=== PATIENT | female | born 1960 | race Caucasian/White ===

== ENCOUNTER 2018-07-24 16:38 | Emergency (ER) | payer BC ==
[2018-07-24 16:51] VITALS: BP 52/37
[2018-07-24] MEDS ORDERED: Metoclopramide 10 MG/2 ML SDV IVPUSH ONE (17:03)
[2018-07-24] MEDS ORDERED: Sodium Chloride 0.9% 1,000 ML IV STA (17:03)
[2018-07-24] MEDS ORDERED: Dextrose 5%-0.9% NaCl 1,000 ML IV STA (17:06)
[2018-07-24] MEDS ORDERED: Iopamidol 755 Mg/ML 200 ML Bottle IV ONE (17:28)
[2018-07-24] MEDS ORDERED: Sodium Chloride 0.9% 100 ML IV SCH (17:30)
[2018-07-24 17:32] LABS: ACETAMINOPHEN 0 ug/mL (10-30)
[2018-07-24] MEDS ORDERED: Norepinephrine 4 MG/4 ML SDV ONE (18:19)
[2018-07-24] MEDS ORDERED: Norepinephrine 4 MG in Dextrose 5% in Water 246 ML IV SCH ×2 (18:30)
[2018-07-24] MEDS ORDERED: EPINEPHrine 1 MG/ML SDV ONE (18:49)
[2018-07-24] MEDS ORDERED: Lidocaine 1% PF 2 ML SDV ONE (19:00)
[2018-07-24] MEDS ORDERED: Succinylcholine 200 MG/10 ML MDV ONE (19:00)
[2018-07-24] MEDS ORDERED: Midazolam 1 MG/ML 5 ML SDV ONE (19:00)
[2018-07-24] MEDS ORDERED: Etomidate 2 MG/ML 20 ML SDV IVPUSH ONE (19:00)
[2018-07-24] MEDS ORDERED: EPINEPHrine 4 MG in Dextrose 5% in Water 250 ML IV SCH ×2 (19:15)
--- NOTE | 2018-07-24 19:36 | EDM.PDOC ---
ED HPI GENERAL MEDICAL PROBLEM - General Chief Complaint: Head Injury Stated Complaint: [facility] Time Seen by Provider: 07/24/18 16:46 Source of Information: Reports: Patient, EMS History Limitations: Reports: Altered Mental Status, Combative/Threatening, Intoxication, Uncooperative - History of Present Illness INITIAL COMMENTS - FREE TEXT/NARRATIVE: 57-year-old female brought to the ED per ambulance. She was found by a family member I believe a brother at the bottom of a staircase inside her home. She appeared to have fallen down 6-8 stairs onto a carpeted concrete floor. She had left the garage door open and therefore have been exposed to very cool air and when she came in she was definitely hypothermic. Her feet were at least 15 below body temperature. I'm not sure that we ever got a core body temperature reading. She was showing atrial fibrillation on the monitor which apparently is chronic for her and but the rate was down in the 30s like 33/m with associated hypotension BP 52/37.. He did not show any outward signs of head or neck trauma. She had injuries to her right index finger nail and her left fifth fingernail as if she been clawing at the floor. He did have tenderness on her right posterior thorax. She smells strongly of alcohol. She was extremely belligerent, uncooperative patient was cyanotic particularily in her periphery. She had pulled out 2 IVs en route to the hospital that the paramedics is started and we got a third one started in the ED once again and protected it well. She was dry heaving and retching a bit and therefore was given metoclopramide 10 mg IV. Due to a hypoxic state we did not feel comfortable giving her any other sedative agent. IV was started at normal saline at open. Rate would jump anywhere between 33 and 46/m but remained in atrial fibrillation which we later found out was chronic for her. Patient was taken immediately to the CT suite where CT head cervical spine, thoracic spine, lumbar spine, and CT chest abdomen and pelvis done with contrast. When she returned from the CT suite it was quite apparent that she was not responding to IV fluids. She remained hypoxic hypotensive and cyanotic. Persistent bradycardia and atrial fibrillation. An ABG had been drawn prior to going to the CT suite and pH came back at 7.15 with a PCO2 of 48.4 to PO2 of less than 70 on 5 L/m by nasal cannula. Sats were 82% decision made to intubate her. She was given lidocaine 120 mg IV with Versed 2 mg IV followed by etomidate 35 mg IV and then succinylcholine 150 mg IV. Patient was intubated with a 7.5 Nepali ET tube and anchored at 22 cm corner of her right lip. Good air entry to both lung milner. However it took vigorous and aggressive Ambu bag being 2 improve her O2 sats. It became apparent that her bradycardia and hypotension were not allowing perfusion of her tissues. Atropine was given 0.5 mg 2 with no real improvement in her heart rate. She was therefore given 1 mg of epinephrine IV push which did improve her heart rate and then her blood pressure and then hypoxia began to improve. Levophed drip was commenced at 10 mcg/m and patient was transferred to ventilator with initial time of volume of 500 and FiO2 of 100 and PEEP of 5 and rate of 16/m. Hardware within 4-5 minutes her O2 sats once again began to fall dramatically down to as low as 57. She therefore required a second injection of epinephrine 1 mg IV push which again transiently brought up her blood pressure heart rate and sats improved with Ambu bag up to 94--95%. Levo phed drip was then increased to 20 mcg/m. Epinephrine drip was being prepared. Nasogastric tube was placed to intermittent Gomco suction. Once again her O2 sat sats and blood pressure started to fall after the epinephrine bolus wore off. She required a third dose of epinephrine bolus to stabilize her until epinephrine drip could be started. It was started at 22 mcg/m for 3 mils per minute. She continued to require Ambu bag being as the ventilator could not maintain her O2 sats. We've increased increased the settings to 20/m and Tylenol volume to 550 and PEEP of 10. Set central line placed right subclavian with single stick. Triple-lumen catheter placed under sterile conditions. All ports flushed easily and are functional. Epinephrine drip was then placed on the subclavian line. CT of the brain revealed some degenerative changes in the basal ganglia bilaterally was no intracranial bleeding mass effect or skull fracture. CT of the cervical spine reveal no fractures advanced degenerative changes particularly at cervical 5-6 level with anterior osteophyte formation and diffuse degenerative disc disease. Thoracic spine similarly show degenerative changes without any compression fractures. Lumbar spine revealed advanced degenerative changes particularly lumbar 34 and 5 but [address] no fractures. CT of the chest revealed a fracture of the eighth rib posteriorly with a contusion evident in the lower lobe. CT of the abdomen revealed no solid organ injuries or bleeding and no free fluid in the pelvis. Pelvis was intact. Unfortunately my computer went down and locked me out as I was trying to place orders on this patient and therefore orders were given secondarily through nursing staff and initial lactic acid unfortunately was not obtained. I suspect the patient was severely acidotic from a combination of being hypothermic unclear how long she had been lying there. She was obviously intoxicated by alcohol with a blood alcohol 0.35 g percent and volume depleted. Unclear what caused her significant bradycardia in chronic atrial fibrillation unless she had taken an overdose of her medications. It took a long time but eventually the patient's vital signs were stabilized. She was able to tolerate the event and maintain satisfactory O2 sats sats of 95-100%. As part of her resuscitation she did received 3 A of sodium bicarbonate as well. She did have some evidence of urinary tract infection and was given Zyvox 600 mg IV as well. Onset: Unknown/Unsure (Unknown for sure when she fell down the stairs at her home. He was with family last evening and she did eat supper last night.) Onset Date: 07/24/18 Duration: Hour(s): Location: Reports: Chest, Back, Other (Injury to the left fifth fingernail with bleeding from under the nail bed and right index finger with similar type injury.) Severity: Severe (Her hypoxia making her cyanotic everywhere and extremely cold to touch and obviously hypothermic. I don't think core temperature was ever collected.) Improves with: Reports: None Worsens with: Reports: None Context: Reports: Trauma (Found at the bottom of 68 stairs leading down internal os. However the garage door was open in the hospital was open and she was exposed to cool outside air which was 38 in [place] today. Appears that this is occurred for a prolonged period of time). Denies: Activity, Exercise, Lifting, Sick Contact Associated Symptoms: Reports: Cough, Shortness of Breath (She is a COPD patient and apparently is supposed to be started oxygen on Wednesday this next week). Denies: Confusion, Chest Pain, Diaphoresis Treatments MARKETING GRAPHICS SPECIALIST: Reports: Other (see below) (Unknown.) - Related Data Allergies Allergy/AdvReac Type Severity Reaction Status Date / Time No Known Allergies Allergy Verified 05/06/16 19:26 Home Meds: Home Meds Atenolol [Tenormin] 50 mg PO DAILY 05/06/16 [History] Diltiazem HCl [Diltiazem ER] 360 mg PO DAILY 05/06/16 [History] Multivitamin [Multivitamins] 1 tab PO DAILY 05/06/16 [History] Pravastatin [Pravachol] 20 mg PO BEDTIME 05/06/16 [History] Rivaroxaban [Xarelto] 20 mg PO DAILY 05/06/16 [History] Ubidecarenone [Coenzyme Q-10] 100 mg PO DAILY 05/06/16 [History] metFORMIN [Glucophage XR] 500 mg PO DAILY 05/06/16 [History] Fenofibric Acid (Choline) [Fenofibric Acid] 45 mg PO DAILY 07/24/18 [History] Fluticasone Furoate [Arnuity Ellipta] 1 inh INH DAILY 07/24/18 [History] Furosemide [Lasix] 20 mg PO DAILY 07/24/18 [History] Potassium Chloride 20 meq PO DAILY 07/24/18 [History] Umeclidinium Brm/Vilanterol Tr [Anoro Ellipta 62.5-25 MCG] 1 inh INH DAILY 07/24 [History] hydroCHLOROthiazide [Hydrochlorothiazide] 25 mg PO DAILY 07/24/18 [History] Past Medical History Cardiovascular History: Reports: Afib (And is on Xarelto 20mg od.), 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 Scheduled to start oxygen therapy early next week) Musculoskeletal History: Reports: Back Pain, Chronic, Other (See Below) ( Osteoarthritis knees hips) Endocrine/Metabolic History: Reports: Diabetes, Type II (Controlled with metformin.) - Past Surgical History Female Surgical History: Reports: Hysterectomy Social & Family History - Tobacco Use Smoking Status *Q: Current Every Day Smoker Years of Tobacco use: 30 Packs/Tins Daily: 1 - Caffeine Use Caffeine Use: Reports: Coffee - Recreational Drug Use Recreational Drug Use: No - Living Situation & Occupation Living situation: Reports: Occupation: Employed ED ROS GENERAL - Review of Systems Review Of Systems: Unable To Obtain (Unable to obtain with any degree of certainty as the patient has markedly impaired by alcohol yelling cursing and screaming) ED EXAM, HEAD INJURY - Physical Exam Exam: See Below Exam Limited By: Intoxication (Acutely intoxicated by alcohol.) General Appearance: Lethargic, Moderate Distress, Other (Uncooperative yelling cursing and screaming.) Head: Atraumatic, Normocephalic, Other (Were no outward signs of head or facial trauma.) Nexus Criteria: No: Posterior, Midline Cervical Tenderness (Paramedics tried to place a collar on her but she ripped it off.), Evidence of Intoxication, Altered Level of Consciousness, Focal Neurological Deficit, Painful Distraction Injuries Eyes: Bilateral Eye: Conjunctival Injection (Mild bilaterally.) Ears: Normal TMs (No blood behind the tympanic membranes) Nose: Dried Blood (Dried blood in both anterior nares. No septal hematoma. ) Throat/Mouth: Normal Voice, Pharyngeal Erythema Neck: Other (She was thrashing around the bed quite well moving her neck without apparent fracture.) Respiratory: Respiratory Distress (Tachypnea get 22-24/m. O2 sats were in the 50s. However they were inaccurate due to severe hypothermia.), Decreased Breath Sounds (Decreased air entry to the posterior aspect of both lung milner by over 25%.), Rhonchi (Rhonchi right lung base.), Wheezing (Occasional expiratory wheezes bilaterally) Cardiovascular: No Edema, No Murmur, No Rub, Bradycardia (Monitor shows atrial fibrillation at 33/m), Irregularly Irregular GI/Abdominal Exam: Non-Tender, No Organomegaly, No Abnormal Bruit, No Mass, Pelvis Stable, Abnormal Bowel Sounds (Bowel sounds were quiet sent.), Other ( Her abdomen is even very cool to touch and is cyanotic.) Back Exam: Other (She has a hematoma right posterior thorax and some tenderness over the posterior lateral lower ribs on the right side. Sternum intact clavicles intact humeri intact the only injuries to the hands were to the left fifth fingernail in the right index fingernail.) Extremities: Other (She had full range of motion of both lower extremities with no evidence of hip fracture or knee or ankle injuries. Pelvis was intact. Lower extremities are not mottled but are definitely cyanotic.). No: Normal Inspection Neurologic: No Motor/Sensory Deficits, Disoriented x 3 (Disoriented to time she knew she was in the hospital. She did not want to be here.) Skin: Other (Patient is extremely cold to her cold to touch and diffusely cyanotic.) - Roseann Coma Score Best Eye Response (Roseann): (4) Open Spontaneously Best Verbal Response ([place]): (4) Confused Conversation Best Motor Response (Roseann): (6) Obeys Commands Roseann Total: 14 ED LACERATION/WOUND & KRISTIE PROC - Endotracheal Intubation Time of Intubation: 17:43 ET Intubation Indication: Respiratory Failure Preparation: Suction, Balloon Tested, BVM Set Up, Difficult Airway Equip Airway Assessment: Obese, Large Tongue Pre-Oxygenation: Assisted with BVM, 100% FiO2 Anesthesia Meds: Etomidate (35 mg), Lidocaine (150 mg), Midazolam (2 mg), Succinylcholine (150 mg) Placement: Orotracheal, Uncomplicated Placement Cords Visualized: Yes, Grade 1 ETT Size In mm: 7.5 Number of Attempts: 1 Confirmed By: CO2 Indicator, Bilateral Breath Sounds, Chest Xray Tube Secured By: By RT ED CENTRAL LINE INSERTION - Central Line Insertion Central Line Indication: hemodynamic monitoring, medication administration Site: subclavian (R) Prep: CDC/MBT Guidelines, Sterile Drapes, Betadine, Chlorhexidine Lumen: triple Gauge: 7Fr Ultrasound guided: No Guidewire and dilator removed intact: Yes Micropuncture kit used: No Complications: No Secured with suture: Yes Post placement confirmation: CXR, all ports aspirated, all ports flushed CXR post-procedure: no pneumothorax Dressing applied: by nurse, op-site dressing EKG INTERPRETATION EKG Date: 07/24/18 Time: 17:02 Rhythm: A-Fib Rate (Beats/Min): 39 [place]: Normal P-Wave: Absent QRS: Other (Intraventricular conduction delay Q waves in leads V1 and V2 suggestive of old anteroseptal myocardial infarction) ST-T: Other (T-wave inversion aVL, V1 and V2 flat T in lead 1. Diffuse repolarization abnormality.) Course - Vital Signs Last Recorded V/S: Last Vital Signs Temp 35.1 C L 07/24/18 16:46 Pulse 55 L 07/24/18 16:46 Resp 22 H 07/24/18 16:46 BP 52/37 L 07/24/18 16:46 Pulse Ox 88 L 07/24/18 16:57 - Orders/Labs/Meds Orders: Active Orders 24 hr Category Date Time Status EKG Documentation Completion [RC] STAT Care 07/24/18 17:03 Active Abdomen Pelvis w Cont [CT] Stat Exams 07/24/18 17:07 Taken Cervical Spine wo Cont [CT] Stat Exams 07/24/18 16:52 Taken Chest 1V-Tube Placement Chk NC [CR] Stat Exams 07/24/18 19:18 Taken Chest PE [Ang Chest] [CT] Stat Exams 07/24/18 17:01 Taken Head wo Cont [CT] Stat Exams 07/24/18 16:52 Taken Lumbar Spine wo Cont [CT] Stat Exams 07/24/18 16:54 Taken Thoracic Spine wo Cont [CT] Stat Exams 07/24/18 16:53 Taken CPK [CREATINE KINASE,CK] [CHEM] Stat Lab 07/24/18 20:39 Ordered EPINEPHrine [Adrenalin] 4 mg Med 07/24/18 19:15 Active Dextrose 5% in Water 250 ml IV TITRATE Linezolid [Zyvox] 300 ml Med 07/24/18 19:15 Active IV Q12H Norepinephrine [Levophed] 4 mg Med 07/24/18 18:30 Active Dextrose 5% in Water 246 ml IV TITRATE Sodium Chloride 0.9% [Normal Saline] 100 ml Med 07/24/18 17:30 Active IV ASDIRECTED Medication Orders Sodium Chloride (Normal Saline) 100 mls @ 3 mls/sec IV ASDIRECTED KB Last Admin: 07/24/18 17:43 Dose: 3 mls/sec Norepinephrine Bitartrate 4 mg (/ Dextrose/Water) 250 mls @ 7.5 mls/hr IV TITRATE KB; Protocol Last Admin: 07/24/18 19:07 Dose: 20 mcg/min, 75 mls/hr Epinephrine HCl 4 mg/ Dextrose (/Water) 254 mls @ 3 mls/hr IV TITRATE KB Linezolid (Zyvox) 300 mls @ 300 mls/hr IV Q12H [facility] Labs: Laboratory Tests 07/24/18 07/24/18 07/24/18 Range/Units 16:53 16:55 16:55 WBC 8.31 (3.98-10.04) K/mm3 RBC 5.57 H (3.98-5.22) M/mm3 Hgb 16.0 H (11.2-15.7) gm/L Hct 51.8 H (34.1-44.9) % MCV 93.0 (79.4-94.8) fl MCH 28.7 (25.6-32.2) pg MCHC 30.9 L (32.2-35.5) g/dl RDW Std Deviation 55.1 H (36.4-46.3) fL Plt Count 219 (182-369) K/mm3 MPV 10.9 (9.4-12.3) fl Neutrophils % (Manual) 64 H (40-60) % Band Neutrophils % 0 (0-10) % Lymphocytes % (Manual) 32 (20-40) % Atypical Lymphs % 0 % Monocytes % (Manual) 4 (2-10) % Eosinophils % (Manual) 0 L (0.7-5.8) % Basophils % (Manual) 0 L (0.1-1.2) Platelet Estimate Adequate RBC Morph Comment Normal PT 14.6 H (9.5-12.1) SECONDS INR 1.35 APTT 32 H (24-31) SECONDS D-Dimer, Quantitative 1.09 H (0.19-0.50) mg/L Puncture Site ABG pH (7.35-7.45) ABG pCO2 (35.0-45.0) mmHg ABG pO2 (80.0-100.0) mmHg ABG HCO3 (22.0-26.0) meq/L ABG O2 Saturation (96.0-97.0) % ABG Base Excess (-2-2.0) Chacorta Test A-a Gradient mmHg O2 Delivery Device Oxygen Flow Rate FiO2 (21.00-100.00) % Sodium (136-145) mEq/L Potassium (3.5-5.1) mEq/L Chloride (98-107) mEq/L Carbon Dioxide (21-32) mEq/L Anion Gap (5-15) BUN (7-18) mg/dL Creatinine (0.55-1.02) mg/dL Est Cr Clr Drug Dosing mL/min Estimated GFR (MDRD) (>60) mL/min BUN/Creatinine Ratio (14-18) Glucose (74-106) mg/dL POC Glucose 105 (70-105) mg/dL Lactic Acid (0.4-2.0) mmol/L Calcium (8.5-10.1) mg/dL Total Bilirubin (0.2-1.0) mg/dL AST (15-37) U/L ALT (14-59) U/L Alkaline Phosphatase (46-116) U/L CK-MB (CK-2) (0-3.6) ng/ml Troponin I (0.00-0.056) ng/mL Total Protein (6.4-8.2) g/dl Albumin (3.4-5.0) g/dl Globulin gm/dL Albumin/Globulin Ratio (1-2) Urine Color (Yellow) Urine Appearance (Clear) Urine pH (5.0-8.0) Ur Specific [place] (1.005-1.030) Urine Protein (Negative) Urine Glucose (UA) (Negative) Urine Ketones (Negative) Urine Occult Blood (Negative) Urine Nitrite (Negative) Urine Bilirubin (Negative) Urine Urobilinogen (0.2-1.0) Ur Leukocyte Esterase (Negative) Urine RBC (0-5) /hpf Urine WBC (0-5) /hpf Urine WBC Clumps (NOT SEEN) /hpf Ur Epithelial Cells (0-5) /hpf Urine Bacteria (FEW) /hpf Urine Mucus (FEW) /hpf Salicylates (2.8-20) mg/dL Urine Opiates Screen (WVAZQT=509) Ur Buprenorphine Scrn (CUTOFF=10) Ur Oxycodone Screen (VGM8NM=987) Urine Methadone Screen (RLPMHG=668) Ur Propoxyphene Screen (RMPJYX=529) Acetaminophen (10-30) ug/mL Ur Barbiturates Screen (BIKCTW=118) Ur Tricyclics Screen (AIGNOQ=777) Ur Phencyclidine Scrn (CUTOFF=25) Ur Amphetamine Screen (JLCMPA=431) U Methamphetamines Scrn (MVESBU=913) U Benzodiazepines Scrn (JRRQPI=151) U Cocaine Metab Screen (OEGEDX=459) U Marijuana (THC) Screen (CUTOFF=50) Ethyl Alcohol (0.00) gm% 07/24/18 07/24/18 07/24/18 Range/Units 16:55 16:55 17:07 WBC (3.98-10.04) K/mm3 RBC (3.98-5.22) M/mm3 Hgb (11.2-15.7) gm/L Hct (34.1-44.9) % MCV (79.4-94.8) fl MCH (25.6-32.2) pg MCHC (32.2-35.5) g/dl RDW Std Deviation (36.4-46.3) fL Plt Count (182-369) K/mm3 MPV (9.4-12.3) fl Neutrophils % (Manual) (40-60) % Band Neutrophils % (0-10) % Lymphocytes % (Manual) (20-40) % Atypical Lymphs % % Monocytes % (Manual) (2-10) % Eosinophils % (Manual) (0.7-5.8) % Basophils % (Manual) (0.1-1.2) Platelet Estimate RBC Morph Comment PT (9.5-12.1) SECONDS INR APTT (24-31) SECONDS D-Dimer, Quantitative (0.19-0.50) mg/L Puncture Site Rt radial ABG pH 7.16 L* (7.35-7.45) ABG pCO2 53.3 H (35.0-45.0) mmHg ABG pO2 40.0 L (80.0-100.0) mmHg ABG HCO3 18.4 L (22.0-26.0) meq/L ABG O2 Saturation 45.5 L (96.0-97.0) % ABG Base Excess -10.7 L (-2-2.0) Chacorta Test Positive A-a Gradient mmHg O2 Delivery Device Nasal cannula Oxygen Flow Rate 4.0 FiO2 0.00 L (21.00-100.00) % Sodium 140 (136-145) mEq/L Potassium 5.4 H D (3.5-5.1) mEq/L Chloride 104 (98-107) mEq/L Carbon Dioxide 19 L (21-32) mEq/L Anion Gap 22.4 H (5-15) BUN 31 H (7-18) mg/dL Creatinine 1.9 H (0.55-1.02) mg/dL Est Cr Clr Drug Dosing 36.95 mL/min Estimated GFR (MDRD) 27 (>60) mL/min BUN/Creatinine Ratio 16.3 (14-18) Glucose 110 H (74-106) mg/dL POC Glucose (70-105) mg/dL Lactic Acid (0.4-2.0) mmol/L Calcium 8.9 (8.5-10.1) mg/dL Total Bilirubin 0.7 (0.2-1.0) mg/dL AST 240 H (15-37) U/L ALT 193 H (14-59) U/L Alkaline Phosphatase 55 (46-116) U/L CK-MB (CK-2) 6.4 H (0-3.6) ng/ml Troponin I < 0.017 (0.00-0.056) ng/mL Total Protein 7.1 (6.4-8.2) g/dl Albumin 3.4 (3.4-5.0) g/dl Globulin 3.7 gm/dL Albumin/Globulin Ratio 0.9 L (1-2) Urine Color (Yellow) Urine Appearance (Clear) Urine pH (5.0-8.0) Ur Specific [place] (1.005-1.030) Urine Protein (Negative) Urine Glucose (UA) (Negative) Urine Ketones (Negative) Urine Occult Blood (Negative) Urine Nitrite (Negative) Urine Bilirubin (Negative) Urine Urobilinogen (0.2-1.0) Ur Leukocyte Esterase (Negative) Urine RBC (0-5) /hpf Urine WBC (0-5) /hpf Urine WBC Clumps (NOT SEEN) /hpf Ur Epithelial Cells (0-5) /hpf Urine Bacteria (FEW) /hpf Urine Mucus (FEW) /hpf Salicylates 2.9 (2.8-20) mg/dL Urine Opiates Screen (GEDJIG=911) Ur Buprenorphine Scrn (CUTOFF=10) Ur Oxycodone Screen (WHJ8JT=824) Urine Methadone Screen (RXIGCR=266) Ur Propoxyphene Screen (IASNQX=157) Acetaminophen 0 L (10-30) ug/mL Ur Barbiturates Screen (EYKVIA=775) Ur Tricyclics Screen (BEVWOK=048) Ur Phencyclidine Scrn (CUTOFF=25) Ur Amphetamine Screen (DJINTQ=277) U Methamphetamines Scrn (APUXPM=550) U Benzodiazepines Scrn (LPKRFW=910) U Cocaine Metab Screen (RKDMJJ=081) U Marijuana (THC) Screen (CUTOFF=50) Ethyl Alcohol 0.35 (0.00) gm% 07/24/18 07/24/18 07/24/18 Range/Units 18:00 18:00 18:47 WBC (3.98-10.04) K/mm3 RBC (3.98-5.22) M/mm3 Hgb (11.2-15.7) gm/L Hct (34.1-44.9) % MCV (79.4-94.8) fl MCH (25.6-32.2) pg MCHC (32.2-35.5) g/dl RDW Std Deviation (36.4-46.3) fL Plt Count (182-369) K/mm3 MPV (9.4-12.3) fl Neutrophils % (Manual) (40-60) % Band Neutrophils % (0-10) % Lymphocytes % (Manual) (20-40) % Atypical Lymphs % % Monocytes % (Manual) (2-10) % Eosinophils % (Manual) (0.7-5.8) % Basophils % (Manual) (0.1-1.2) Platelet Estimate RBC Morph Comment PT (9.5-12.1) SECONDS INR APTT (24-31) SECONDS D-Dimer, Quantitative (0.19-0.50) mg/L Puncture Site Rt radial ABG pH 7.25 L (7.35-7.45) ABG pCO2 41.4 (35.0-45.0) mmHg ABG pO2 250.0 H* (80.0-100.0) mmHg ABG HCO3 17.6 L (22.0-26.0) meq/L ABG O2 Saturation 99.7 H (96.0-97.0) % ABG Base Excess -8.9 L (-2-2.0) Chacorta Test Positive A-a Gradient 338 mmHg O2 Delivery Device Oxygen Flow Rate FiO2 0.00 L (21.00-100.00) % Sodium (136-145) mEq/L Potassium (3.5-5.1) mEq/L Chloride (98-107) mEq/L Carbon Dioxide (21-32) mEq/L Anion Gap (5-15) BUN (7-18) mg/dL Creatinine (0.55-1.02) mg/dL Est Cr Clr Drug Dosing mL/min Estimated GFR (MDRD) (>60) mL/min BUN/Creatinine Ratio (14-18) Glucose (74-106) mg/dL POC Glucose (70-105) mg/dL Lactic Acid (0.4-2.0) mmol/L Calcium (8.5-10.1) mg/dL Total Bilirubin (0.2-1.0) mg/dL AST (15-37) U/L ALT (14-59) U/L Alkaline Phosphatase (46-116) U/L CK-MB (CK-2) (0-3.6) ng/ml Troponin I (0.00-0.056) ng/mL Total Protein (6.4-8.2) g/dl Albumin (3.4-5.0) g/dl Globulin gm/dL Albumin/Globulin Ratio (1-2) Urine Color Yellow (Yellow) Urine Appearance Clear (Clear) Urine pH 6.0 (5.0-8.0) Ur Specific [place] 1.020 (1.005-1.030) Urine Protein Negative (Negative) Urine Glucose (UA) Negative (Negative) Urine Ketones Negative (Negative) Urine Occult Blood Negative (Negative) Urine Nitrite Positive H (Negative) Urine Bilirubin Negative (Negative) Urine Urobilinogen 0.2 (0.2-1.0) Ur Leukocyte Esterase Trace H (Negative) Urine RBC 0-5 (0-5) /hpf Urine WBC 0-5 (0-5) /hpf Urine WBC Clumps Few (NOT SEEN) /hpf Ur Epithelial Cells 0-5 (0-5) /hpf Urine Bacteria Many H (FEW) /hpf Urine Mucus Few (FEW) /hpf Salicylates (2.8-20) mg/dL Urine Opiates Screen Negative (NQOKDW=613) Ur Buprenorphine Scrn Negative (CUTOFF=10) Ur Oxycodone Screen Negative (CIL7NT=082) Urine Methadone Screen Negative (FRVOCF=468) Ur Propoxyphene Screen Negative (RZUMRS=766) Acetaminophen (10-30) ug/mL Ur Barbiturates Screen Negative (QJBMHL=641) Ur Tricyclics Screen Negative (KMKUXF=461) Ur Phencyclidine Scrn Negative (CUTOFF=25) Ur Amphetamine Screen Negative (LLFYNH=036) U Methamphetamines Scrn Negative (IYONQY=707) U Benzodiazepines Scrn Negative (GTTNVW=889) U Cocaine Metab Screen Negative (TUPHZP=063) U Marijuana (THC) Screen Negative (CUTOFF=50) Ethyl Alcohol (0.00) gm% 07/24/18 Range/Units 19:45 WBC (3.98-10.04) K/mm3 RBC (3.98-5.22) M/mm3 Hgb (11.2-15.7) gm/L Hct (34.1-44.9) % MCV (79.4-94.8) fl MCH (25.6-32.2) pg MCHC (32.2-35.5) g/dl RDW Std Deviation (36.4-46.3) fL Plt Count (182-369) K/mm3 MPV (9.4-12.3) fl Neutrophils % (Manual) (40-60) % Band Neutrophils % (0-10) % Lymphocytes % (Manual) (20-40) % Atypical Lymphs % % Monocytes % (Manual) (2-10) % Eosinophils % (Manual) (0.7-5.8) % Basophils % (Manual) (0.1-1.2) Platelet Estimate RBC Morph Comment PT (9.5-12.1) SECONDS INR APTT (24-31) SECONDS D-Dimer, Quantitative (0.19-0.50) mg/L Puncture Site ABG pH (7.35-7.45) ABG pCO2 (35.0-45.0) mmHg ABG pO2 (80.0-100.0) mmHg ABG HCO3 (22.0-26.0) meq/L ABG O2 Saturation (96.0-97.0) % ABG Base Excess (-2-2.0) Chacorta Test A-a Gradient mmHg O2 Delivery Device Oxygen Flow Rate FiO2 (21.00-100.00) % Sodium (136-145) mEq/L Potassium (3.5-5.1) mEq/L Chloride (98-107) mEq/L Carbon Dioxide (21-32) mEq/L Anion Gap (5-15) BUN (7-18) mg/dL Creatinine (0.55-1.02) mg/dL Est Cr Clr Drug Dosing mL/min Estimated GFR (MDRD) (>60) mL/min BUN/Creatinine Ratio (14-18) Glucose (74-106) mg/dL POC Glucose (70-105) mg/dL Lactic Acid 9.1 H (0.4-2.0) mmol/L Calcium (8.5-10.1) mg/dL Total Bilirubin (0.2-1.0) mg/dL AST (15-37) U/L ALT (14-59) U/L Alkaline Phosphatase (46-116) U/L CK-MB (CK-2) (0-3.6) ng/ml Troponin I (0.00-0.056) ng/mL Total Protein (6.4-8.2) g/dl Albumin (3.4-5.0) g/dl Globulin gm/dL Albumin/Globulin Ratio (1-2) Urine Color (Yellow) Urine Appearance (Clear) Urine pH (5.0-8.0) Ur Specific [place] (1.005-1.030) Urine Protein (Negative) Urine Glucose (UA) (Negative) Urine Ketones (Negative) Urine Occult Blood (Negative) Urine Nitrite (Negative) Urine Bilirubin (Negative) Urine Urobilinogen (0.2-1.0) Ur Leukocyte Esterase (Negative) Urine RBC (0-5) /hpf Urine WBC (0-5) /hpf Urine WBC Clumps (NOT SEEN) /hpf Ur Epithelial Cells (0-5) /hpf Urine Bacteria (FEW) /hpf Urine Mucus (FEW) /hpf Salicylates (2.8-20) mg/dL Urine Opiates Screen (HDLPBE=086) Ur Buprenorphine Scrn (CUTOFF=10) Ur Oxycodone Screen (FBV3AZ=821) Urine Methadone Screen (VUSLTN=502) Ur Propoxyphene Screen (SOSKSW=867) Acetaminophen (10-30) ug/mL Ur Barbiturates Screen (YIUGJE=926) Ur Tricyclics Screen (ARJUAH=948) Ur Phencyclidine Scrn (CUTOFF=25) Ur Amphetamine Screen (TWIRDY=313) U Methamphetamines Scrn (LGFAKR=060) U Benzodiazepines Scrn (ELPHNY=452) U Cocaine Metab Screen (LJGIMR=952) U Marijuana (THC) Screen (CUTOFF=50) Ethyl Alcohol (0.00) gm% Meds: Medications Generic Name Dose Route Start Last Admin Trade Name Freq PRN Reason Stop Dose Admin Sodium Chloride 100 mls @ 3 mls/sec 07/24/18 17:30 07/24/18 17:43 Normal Saline IV 3 mls/sec ASDIRECTED KB Administration Norepinephrine Bitartrate 4 mg 250 mls @ 7.5 mls/hr 07/24/18 18:30 07/24/18 19:07 / Dextrose/Water IV 20 mcg/min TITRATE KB 75 mls/hr Administration Protocol 2 MCG/MIN Epinephrine HCl 4 mg/ Dextrose 254 mls @ 3 mls/hr 07/24/18 19:15 /Water IV TITRATE KB Linezolid 300 mls @ 300 mls/hr 07/24/18 19:15 Zyvox IV Q12H KB Discontinued Medications Generic Name Dose Route Start Last Admin Trade Name Hong PRN Reason Stop Dose Admin Epinephrine HCl Confirm 07/24/18 18:49 Adrenalin Administered 07/24/18 18:50 Dose 1 mg .ROUTE .STK-MED ONE Sodium Chloride 1,000 mls @ 999 mls/hr 07/24/18 17:03 07/24/18 17:18 Normal Saline IV 07/24/18 18:03 Not Given NOW STA Dextrose/Sodium Chloride 1,000 mls @ 999 mls/hr 07/24/18 17:06 07/24/18 17:10 Dextrose 5%-Normal Saline IV 07/24/18 18:06 999 mls/hr NOW STA Administration Iopamidol 200 ml 07/24/18 17:28 07/24/18 17:43 Isovue-370 (76%) IV 07/24/18 17:29 100 ml ONETIME ONE Administration Metoclopramide HCl 10 mg 07/24/18 17:03 07/24/18 17:10 Reglan IVPUSH 07/24/18 17:04 10 mg ONETIME ONE Administration Norepinephrine Bitartrate Confirm 07/24/18 18:19 07/24/18 18:25 Levophed Administered 07/24/18 18:20 Not Given Dose 4 mg .ROUTE .STK-MED ONE Vecuronium [place] Confirm 07/24/18 19:47 Vecuronium Administered 07/24/18 19:48 Dose 10 mg .ROUTE .STK-MED ONE - Radiology Interpretation Free Text/Narrative:: See history of present illness as most of information on this patient was mentioned there. She required vigorous resuscitation due to persistent tachycardia in chronic atrial fibrillation aggravated by hypothermia and acute alcohol toxicity and COPD with severe persistent hypoxia due to inability to perfuse her tissues. She had a significant acidosis most likely lactic acidosis from hypertension and inspiratory acidosis. - Re-Assessments/Exams Free Text/Narrative Re-Assessment/Exam: 07/24/18 21:33 Labs revealed a total white count of 8.31 with 64% neutrophils and no band cells reported. Hemoglobin was 16.0 with hematocrit of 51.8 suggesting some degree of hemoconcentration. Platelet count 219,000. PT was 14.6 with an INR 1.35. PTT was 32. D-dimer was 1.09. Sodium 140 with potassium slightly elevated at 5.4. Chloride 104 with a bicarbonate of 19. Anion gap is 22.4. BUN is 31 with a creatinine of 1.9. Estimated GFR was 27. Glucose 110. Lactic acid was 9.1 but this was collected almost before the patient left the department. It was unfortunately omitted from the initial orders. Calcium is 8.9 with a total bilirubin of 0.7. AST elevated at 240 with an ALT of 193 most likely due to alcohol-induced inflammation of the liver alkaline phosphatase days was 55. CK-MB fraction was elevated at 6.4. Troponin I was less than 0.017. Total protein was 7.1 albumin fraction 3.4. Urinalysis was positive for nitrates and trace leukocyte esterase with many bacteria noted. Urine was sent for culture. Patient was started on Zyvox 600 mg IV. Urine drug screen was negative. Salicylates were 2.9. Tylenol level was 0. Departure - Departure Time of Disposition: 20:10 Disposition: DC/Tfer to Acute Hospital 02 Condition: Critical Clinical Impression: Acute alcohol intoxication delirium with moderate or severe use disorder, Chronic atrial fibrillation, Bradycardia with 31-40 beats per minute, Hypoxia, Volume depletion, Lower urinary tract infection Fall down stairs Qualifiers: Encounter type: initial encounter Qualified Code(s): W10.8XXA - Fall (on) (from ) other stairs and steps, initial encounter COPD (chronic obstructive pulmonary disease) with emphysema Qualifiers: Emphysema type: panlobular Qualified Code(s): J43.1 - Panlobular emphysema Fracture, rib Qualifiers: Encounter type: initial encounter Rib fracture type: single rib Fracture type: closed Laterality: right Qualified Code(s): S22.31XA - Fracture of one rib, right side, initial encounter for closed fracture Contusion of right lung Qualifiers: Encounter type: initial encounter Qualified Code(s): S27.321A - Contusion of lung, unilateral, initial encounter Hypotension (arterial) Qualifiers: Hypotension type: unspecified hypotension type Qualified Code(s): I95.9 - Hypotension, unspecified - Discharge Information *PRESCRIPTION DRUG MONITORING PROGRAM REVIEWED*: No *COPY OF PRESCRIPTION DRUG MONITORING REPORT IN PATIENT NILS: No Referrals: Aracelis Kwon MD [Primary Care Provider] - Forms: ED Department Discharge Additional Instructions: Patient transferred to [facility] in [place] as her medical records are through the [facility] system. She will be a direct admit to the intensive care unit under the care of . At the time of discharge her blood pressure was 122/78. Heart rate was in the 1 teens. Remains in atrial fibrillation. O2 sats were 96-100% on 100% oxygen. Critical Care Note - Critical Care Note Total Time (mins): 210 - My Orders Last 24 Hours: My Active Orders 07/24/18 16:52 Cervical Spine wo Cont [CT] Stat Head wo Cont [CT] Stat 07/24/18 16:53 Thoracic Spine wo Cont [CT] Stat 07/24/18 16:54 Lumbar Spine wo Cont [CT] Stat 07/24/18 17:01 Chest PE [Ang Chest] [CT] Stat 07/24/18 17:07 Abdomen Pelvis w Cont [CT] Stat 07/24/18 17:30 Sodium Chloride 0.9% [Normal Saline] 100 ml IV ASDIRECTED 07/24/18 18:30 Norepinephrine [Levophed] 4 mg Dextrose 5% in Water 246 ml IV TITRATE 07/24/18 19:15 EPINEPHrine [Adrenalin] 4 mg Dextrose 5% in Water 250 ml IV TITRATE Linezolid [Zyvox] 300 ml IV Q12H 07/24/18 19:18 Chest 1V-Tube Placement Chk NC [CR] Stat 07/24/18 20:39 CPK [CREATINE KINASE,CK] [CHEM] Stat - Assessment/Plan Last 24 Hours: My Active Orders 07/24/18 16:52 Cervical Spine wo Cont [CT] Stat Head wo Cont [CT] Stat 07/24/18 16:53 Thoracic Spine wo Cont [CT] Stat 07/24/18 16:54 Lumbar Spine wo Cont [CT] Stat 07/24/18 17:01 Chest PE [Ang Chest] [CT] Stat 07/24/18 17:07 Abdomen Pelvis w Cont [CT] Stat 07/24/18 17:30 Sodium Chloride 0.9% [Normal Saline] 100 ml IV ASDIRECTED 07/24/18 18:30 Norepinephrine [Levophed] 4 mg Dextrose 5% in Water 246 ml IV TITRATE 07/24/18 19:15 EPINEPHrine [Adrenalin] 4 mg Dextrose 5% in Water 250 ml IV TITRATE Linezolid [Zyvox] 300 ml IV Q12H 07/24/18 19:18 Chest 1V-Tube Placement Chk NC [CR] Stat 07/24/18 20:39 CPK [CREATINE KINASE,CK] [CHEM] Stat
--- NOTE | 2018-07-25 07:22 | CT ---
CT chest Technique: Multiple axial sections through the chest were obtained. Intravenous contrast was utilized. Study has been performed as a pulmonary angiogram protocol. Findings: Pulmonary arteries are well opacified. No filling defects are seen to indicate pulmonary embolism. Atherosclerotic calcification is noted within the thoracic aorta without aneurysm. No mediastinal or hilar adenopathy is seen. No pericardial thickening is seen. Heart size is mildly enlarged. Small portion of the visualized upper abdominal structures shows no discrete abnormality. Mild emphysematous changes are seen within the lungs. Slight left lingular atelectasis is noted. Mild dependent atelectasis is seen posteriorly within both lung bases. Bone window settings were reviewed which show a fracture which may possibly be acute within the posterolateral right eighth rib. Mild degenerative change is scattered within the spine. Old fracture is noted which appears healed within the seventh rib. Impression: 1. No findings of pulmonary embolism. 2. Findings suspicious for acute fracture within the posterolateral right eighth rib. 3. Other incidental findings. Diagnostic code #3 I agree with preliminary report from [facility], finalized on 07/24/18, 7:15 PM Central Time
--- NOTE | 2018-07-25 07:22 | CR ---
Chest: Portable view of the chest with and. Comparison: No prior chest x-ray is available. Heart is slightly enlarged. Areas of atelectasis are seen within both lungs. Diffuse increased lung markings are noted within the right chest. Endotracheal tube is seen with tip lying at the upper level of the clavicles. Nasogastric tube courses off the inferior edge of film into the stomach. Impression: 1. Slight cardiomegaly with diffuse right-sided increased lung markings possibly due to asymmetric bronchitis versus asymmetric pulmonary vascular congestion. 2. Atelectasis. 3. Tip of endotracheal tube at upper level of clavicles and nasogastric tube coursing off the inferior edge of the film into the stomach. Diagnostic code #3
--- NOTE | 2018-07-25 07:22 | CT ---
CT abdomen and pelvis Technique: Multiple axial sections were obtained from above the dome of the diaphragm inferiorly through the pubic symphysis. Intravenous contrast was utilized. No oral contrast was given. Comparison: No prior abdominal imaging is available. Findings: Small portion of the visualized lung bases show nothing acute. Liver contains no focal abnormality. Spleen appears within normal limits. Heart is enlarged. Adrenal glands show no discrete abnormality. Kidneys show symmetric contrast enhancement without hydronephrosis or discrete mass. Pancreas is within normal limits. Gallbladder contains no calcified gallstones. Aorta shows no aneurysm. Scattered atherosclerotic change is noted within the aorta and iliac vessels. No retroperitoneal adenopathy or mesenteric abnormalities are seen. No pelvic mass or adenopathy is seen. Bone window settings were reviewed which show scattered degenerative change within the spine. Impression: 1. Cardiomegaly. 2. Degenerative change within the spine and atherosclerotic calcification within the aorta. 3. Nothing acute is appreciated on CT study of the abdomen and pelvis. Diagnostic code #2 I agree with preliminary report from [facility], finalized on 07/24/18, 7:17 PM Central Time
--- NOTE | 2018-07-25 07:22 | CT ---
Head CT Technique: Multiple axial sections through the brain were obtained. Intravenous contrast was not utilized. Comparison: No prior intracranial imaging. Findings: Ventricles along with basal cisterns and sulci over the convexities are within normal limits for the patient's age. No abnormal parenchymal densities are seen. No evidence of intracranial hemorrhage. No midline shift or mass effect is seen. Bone window settings were reviewed which show no acute calvarial abnormality. Visualized sinuses show nothing acute. Impression: 1. No acute intracranial abnormality is identified. Diagnostic code #1 I agree with preliminary report from [facility], finalized on 07/24/18, 7:10 PM Central Time
--- NOTE | 2018-07-25 07:22 | CT ---
CT thoracic spine Technique: Multiple axial sections through the thoracic spine were obtained. Comparison: No previous study. Findings: Enlarged left atrium is partially visualized. Disc space narrowing is seen within the mid and lower thoracic spine. Several levels of vacuum disc phenomena are seen. Spurring is noted posteriorly at T8-T9. Anterior endplate osteophytes are scattered within the mid and lower thoracic spine. No fracture is appreciated. Scattered degenerative apophyseal change is seen. No central canal stenosis or discrete neural foraminal stenosis is seen. Impression: 1. Mild degenerative change as noted above. 2. Enlarged left atrium is partially visualized. 3. Nothing acute is appreciated on CT study of the thoracic spine. Diagnostic code #2 I agree with preliminary report from [facility], finalized on 07/24/18, 7:27 PM Central Time
--- NOTE | 2018-07-25 07:22 | CT ---
CT lumbar spine Technique: Multiple axial sections were obtained through the lumbar spine. Reconstructed coronal and sagittal images were obtained. Comparison: No prior lumbar spine imaging. Findings: Severe disc space narrowing is noted at L1-L2 and L2-L3. Slight vacuum disc phenomena is seen at both these levels. Scattered anterior endplate osteophytes are seen. Epidural air is seen posterior to L2 compatible with annular rupture at one of the levels of vacuum phenomena. No fracture is identified. No abnormal subluxation is seen. Moderate circumferential disc bulge is noted at L2-L3. Mild to moderate circumferential disc bulge is noted at L3-L4. Minimal circumferential disc bulge is noted at L4-L5. Focal area of severe stenosis is noted within the proximal celiac axis. Impression: 1. Degenerative change as noted above. 2. No acute abnormality is seen on CT study of the lumbar spine. 3. 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 Diagnostic code #3 I agree with preliminary report from [facility], finalized on 07/24/18, 7:28 PM Central Time
--- NOTE | 2018-07-25 07:22 | CT ---
CT cervical spine Technique: Multiple axial sections through the cervical spine were obtained. Reconstructed sagittal and coronal images were reviewed. Comparison: No prior cervical spine imaging. Findings: Severe disc space narrowing noted at C5-C6 and C6-C7. Anterior osteophyte seen at both these levels as well as mild posterior osteophytes. Vertebral body heights are maintained. Scattered degenerative apophyseal change is seen throughout the cervical spine. No fracture is seen. Moderate to severe bilateral neural foraminal stenosis is noted at C6-C7. Moderate to severe bilateral neural foraminal stenosis noted at C5-C6. Mild to moderate bilateral neural foraminal stenosis is noted at C3-C4. Kyphosis noted on the reconstructed sagittal images which most likely is due to position. Spurring noted within the uncovertebral joints at C5-C6 and C6-C7 and lesser spurring at T4-T5. Impression: 1. Degenerative change as noted above. 2. Nothing acute is appreciated on CT study of the cervical spine. Diagnostic code #2 Mild disagree with preliminary report from [facility] (I believe there is no definite evidence of Arnold-Chiari 1 malformation), finalized on 07/24/18, 7:12 PM Central Time, code #2
== END 2018-07-24 20:10 ==
LOC: JD.ED 16:38
DX: S27.321A Contusion of lung, unilateral, initial encounter (principal); J43.1 Panlobular emphysema; R09.02 Hypoxemia; I48.2 Chronic atrial fibrillation; R00.1 Bradycardia, unspecified; I95.9 Hypotension, unspecified; N39.0 Urinary tract infection, site not specified; I50.9 Heart failure, unspecified; E11.9 Type 2 diabetes mellitus without complications; F17.210 Nicotine dependence, cigarettes, uncomplicated; Z79.899 Other long term (current) drug therapy; F10.121 Alcohol abuse with intoxication delirium; W10.9XXA Fall (on) (from) unspecified stairs and steps, initial encounter
CPT/HCPCS: 31500; 36415; 36556; 36600; 51702; 70450; 71275; 72125; 72128; 72131; 74177; 80053; 80306; 81001; 82550; 82553; 82803; 82962; 83605; 84484; 85007; 85027; 85379; 85610; 85730; 87086; 87088; 87186; 93005; 96361; 96365; 96366; 96368; 96375; 96376; 99291; 99292; G0480; J0330; J2001; J2250; J2765; J3490; J7030; J7042; J7060; Q9967

== ENCOUNTER 2019-03-08 05:23 | Emergency (ER) | payer BC ==
[2019-03-08 05:40] VITALS: BP 149/105; PULSE 145
--- NOTE | 2019-03-08 06:40 | EDM.PDOC ---
<Duncan Love Fallon - Last Filed: 03/08/19 07:02> ED HPI GENERAL MEDICAL PROBLEM - General Chief Complaint: Abdominal Pain Stated Complaint: LEFT SIDE PAIN Time Seen by Provider: 03/08/19 06:13 Source of Information: Reports: Patient, Family () History Limitations: Reports: No Limitations - History of Present Illness INITIAL COMMENTS - FREE TEXT/NARRATIVE: Mrs. Canchola is a very pleasant 58-year-old woman with a past medical history significant for cardiomyopathy/CHF, chronic atrial fibrillation on Xarelto, COPD , obstructive sleep apnea on nightly CPAP, and untreated diabetes, who states that she developed left lower quadrant abdominal pain around 21:00 or 22:00 last night. She went to sleep, but woke this morning with considerably worse left lower quadrant pain. The pain is only present if she moves, and is nonexistent if she remains still. She describes the pain as sharp in character. It does not radiate. No recent fever, nausea, vomiting, constipation, diarrhea, or urinary symptoms. No prior similar symptoms. The patient states that she took some Tylenol, which did not help. Her last food was at 05:30 this morning. The patient states that she has never undergone an EGD or colonoscopy. The patient's PCP is Sita Robles NP. Her cardiac mid-level is VICTORINO Kimble. She does not recall the name of her pulmonary mid-level, in [place]. Left Pelvic Pain Score (Numeric/FACES): 6 - Related Data Allergies Allergy/AdvReac Type Severity Reaction Status Date / Time No Known Allergies Allergy Verified 05/06/16 19:26 Home Meds: Home Meds Atenolol [Tenormin] 50 mg PO DAILY 05/06/16 [History] Diltiazem HCl [Diltiazem ER] 360 mg PO DAILY 05/06/16 [History] Multivitamin [Multivitamins] 1 tab PO DAILY 05/06/16 [History] Pravastatin [Pravachol] 20 mg PO BEDTIME 05/06/16 [History] Rivaroxaban [Xarelto] 20 mg PO DAILY 05/06/16 [History] Ubidecarenone [Coenzyme Q-10] 100 mg PO DAILY 05/06/16 [History] metFORMIN [Glucophage XR] 500 mg PO DAILY 02/15/17 [History] Fenofibric Acid (Choline) [Fenofibric Acid] 45 mg PO DAILY 07/24/18 [History] Fluticasone Furoate [Arnuity Ellipta] 1 inh INH DAILY 07/24/18 [History] Furosemide [Lasix] 20 mg PO DAILY 07/24/18 [History] Potassium Chloride 20 meq PO DAILY 07/24/18 [History] Umeclidinium Brm/Vilanterol Tr [Anoro Ellipta 62.5-25 MCG] 1 inh INH DAILY 07/24 [History] hydroCHLOROthiazide [Hydrochlorothiazide] 25 mg PO DAILY 07/24/18 [History] Amoxicillin/Clavulanate K [Augmentin 875-125 MG] 1 tab PO BID #20 tablet [Rx] Past Medical History Cardiovascular History: Reports: Afib (chronic), Cardiomyopathy, Heart Failure, High Cholesterol Respiratory History: Reports: COPD (PFT-proven), Sleep Apnea (nightly CPAP 11) Musculoskeletal History: Reports: Osteoarthritis Endocrine/Metabolic History: Reports: Diabetes, Type II (untreated), Obesity/ BMI 30+ Oncologic (Cancer) History: Reports: Cervix - Past Surgical History HEENT Surgical History: Reports: Oral Surgery (wisdom teeth extraction) Female Surgical History: Reports: Hysterectomy (partial) Oncologic Surgical History: Reports: Other (See Below) Other Oncologic Surgeries/Procedures: hysterectomy Social & Family History - Tobacco Use Smoking Status *Q: Former Smoker Years of Tobacco use: 40 Packs/Tins Daily: 2 Month/Year Tobacco Last Used: Quit July 2018 - Caffeine Use Caffeine Use: Reports: Soda - Alcohol Use Alcohol Use History: Yes Date/Time of Last Drink Comment: 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 ED EXAM, GI/ABD - Physical Exam Exam: See Below Exam Limited By: No Limitations General Appearance: Alert, WD/WN, No Apparent Distress Eyes: Bilateral: Normal Appearance, EOMI Ears: Normal External Exam, Hearing Grossly Normal Nose: Normal Inspection Throat/Mouth: Normal Inspection, Normal Lips, Normal Voice, No Airway Compromise Head: Atraumatic, Normocephalic Neck: Normal Inspection, Full Range of Motion Respiratory/Chest: No Respiratory Distress, Lungs Clear, Normal Breath Sounds, No Accessory Muscle Use Cardiovascular: Normal Peripheral Pulses, No Edema, No Gallop, No JVD, No Murmur , No Rub, Tachycardia, Irregularly Irregular GI/Abdominal Exam: Normal Bowel Sounds, Soft, No Organomegaly, No Distention, No Abnormal Bruit, No Mass, Tender (Left lower quadrant only. Nontender elsewhere, although palpation of the right lower quadrant and left upper quadrant induce pain in the left lower quadrant.) (Female) Exam: Deferred Rectal (Female) Exam: Deferred Back Exam: Normal Inspection, Full Range of Motion. No: CVA Tenderness (L), CVA Tenderness (R) Extremities: Normal Inspection, Normal Range of Motion, No Pedal Edema, Normal Capillary Refill Neurological: Alert, Oriented, Normal Cognition, No Motor/Sensory Deficits Psychiatric: Normal Affect Skin Exam: Warm, Dry, Intact, Normal Color, No Rash Course - Vital Signs Last Recorded V/S: Last Vital Signs Temp 97.6 F 03/08/19 05:39 Pulse 145 H 03/08/19 05:39 Resp 24 H 03/08/19 05:39 BP 149/105 H 03/08/19 05:39 Pulse Ox 91 L 03/08/19 05:39 - Orders/Labs/Meds Orders: Active Orders 24 hr Category Date Time Status Abdomen Pelvis w Cont [CT] Stat Exams 03/08/19 06:32 Taken Sodium Chloride 0.9% [Normal Saline] 1,000 ml Med 03/08/19 06:45 Active IV ASDIRECTED Sodium Chloride 0.9% [Normal Saline] 100 ml Med 03/08/19 07:45 Active IV ASDIRECTED Medication Orders Sodium Chloride (Normal Saline) 1,000 mls @ 100 mls/hr IV ASDIRECTED KB Last Admin: 03/08/19 06:42 Dose: 100 mls/hr Sodium Chloride (Normal Saline) 100 mls @ 60 mls/hr IV ASDIRECTED KB Last Admin: 03/08/19 08:10 Dose: 60 mls/hr Labs: Laboratory Tests 03/08/19 03/08/19 03/08/19 Range/Units 05:55 05:55 07:15 WBC 13.07 H (3.98-10.04) K/mm3 RBC 5.11 (3.98-5.22) M/mm3 Hgb 14.9 (11.2-15.7) gm/dl Hct 45.8 H (34.1-44.9) % MCV 89.6 D (79.4-94.8) fl MCH 29.2 (25.6-32.2) pg MCHC 32.5 (32.2-35.5) g/dl RDW Std Deviation 45.1 (36.4-46.3) fL Plt Count 234 (182-369) K/mm3 MPV 10.4 (9.4-12.3) fl Neut % (Auto) 77.9 H (34.0-71.1) % Lymph % (Auto) 11.5 L (19.3-51.7) % [place] % (Auto) 9.4 (4.7-12.5) % Eos % (Auto) 0.8 (0.7-5.8) Baso % (Auto) 0.2 (0.1-1.2) % Neut # (Auto) 10.18 H (1.56-6.13) K/mm3 Lymph # (Auto) 1.50 (1.18-3.74) K/mm3 [place] # (Auto) 1.23 H (0.24-0.36) K/mm3 Eos # (Auto) 0.10 (0.04-0.36) K/mm3 Baso # (Auto) 0.03 (0.01-0.08) K/mm3 Manual Slide Review Normal smear Sodium 136 (136-145) mEq/L Potassium 4.1 (3.5-5.1) mEq/L Chloride 101 (98-107) mEq/L Carbon Dioxide 22 (21-32) mEq/L Anion Gap 17.1 H (5-15) BUN 19 H (7-18) mg/dL Creatinine 1.2 H (0.55-1.02) mg/dL Est Cr Clr Drug Dosing 57.81 mL/min Estimated GFR (MDRD) 46 (>60) mL/min BUN/Creatinine Ratio 15.8 (14-18) Glucose 248 H (74-106) mg/dL Calcium 9.5 (8.5-10.1) mg/dL Total Bilirubin 0.8 (0.2-1.0) mg/dL AST 29 (15-37) U/L ALT 43 (14-59) U/L Alkaline Phosphatase 79 (46-116) U/L Total Protein 7.3 (6.4-8.2) g/dl Albumin 3.4 (3.4-5.0) g/dl Globulin 3.9 gm/dL Albumin/Globulin Ratio 0.9 L (1-2) Urine Color Light yellow (Yellow) Urine Appearance Clear (Clear) Urine pH 6.5 (5.0-8.0) Ur Specific [place] 1.025 (1.005-1.030) Urine Protein 1+ H (Negative) Urine Glucose (UA) Negative (Negative) Urine Ketones Negative (Negative) Urine Occult Blood Negative (Negative) Urine Nitrite Negative (Negative) Urine Bilirubin Negative (Negative) Urine Urobilinogen 0.2 (0.2-1.0) Ur Leukocyte Esterase Negative (Negative) Urine RBC 0-5 (0-5) /hpf Urine WBC 0-5 (0-5) /hpf Ur Squamous Epith Cells 0-5 (0-5) /hpf Urine Bacteria Few (FEW) /hpf Urine Mucus Few (FEW) /hpf Meds: Medications Generic Name Dose Route Start Last Admin Trade Name Freq PRN Reason Stop Dose Admin Sodium Chloride 1,000 mls @ 100 mls/hr 03/08/19 06:45 03/08/19 06:42 Normal Saline IV 100 mls/hr ASDIRECTED KB Administration Sodium Chloride 100 mls @ 60 mls/hr 03/08/19 07:45 03/08/19 08:10 Normal Saline IV 60 mls/hr ASDIRECTED KB Administration Discontinued Medications Generic Name Dose Route Start Last Admin Trade Name Freq PRN Reason Stop Dose Admin Diatrizoate Meglum/Diatrizoate Sod 90 ml 03/08/19 07:34 03/08/19 08:10 Gastrografin 37% PO 03/08/19 07:35 90 ml ONETIME ONE Administration Iopamidol 100 ml 03/08/19 07:34 03/08/19 08:10 Isovue-300 (61%) IVPUSH 03/08/19 07:35 100 ml ONETIME ONE Administration Sodium Chloride 10 ml 03/08/19 07:34 03/08/19 08:10 Saline Flush FLUSH 03/08/19 07:35 10 ml ONETIME ONE Administration - Re-Assessments/Exams Free Text/Narrative Re-Assessment/Exam: 03/08/19 06:34 The patient's history and physical examination are most consistent with acute diverticulitis. A CBC, CMP, and urinalysis were ordered by the patient's nurse. I have added a CT scan of her abdomen and pelvis with oral IV contrast, along with judicious IV fluid, considering that she has a history of CHF. She declined an offer for pain medication and antinausea medication. 03/08/19 07:01 The patient's CBC is remarkable for WBC count elevated at 13.07, and a hematocrit mildly elevated at 45.8. The remainder of her CBC is unremarkable. Her CMP is remarkable for a BUN/Cr is elevated at 19/1.2, and a blood glucose elevated at 248. The remainder of her CMP is unremarkable. Her urinalysis and CT of the abdomen and pelvis results are still pending. Case discussed with Dr. Gómez, and care of the patient turned over to him at this time, for change of shift. Departure - Departure Disposition: Home, Self-Care 01 Clinical Impression: Diverticulitis - Discharge Information Prescriptions: Amoxicillin/Clavulanate K [Augmentin 875-125 MG] 1 tab PO BID #20 tablet Referrals: Sita Robles NP [Primary Care Provider] - 1 Week Forms: ED Department Discharge Additional Instructions: Drink plenty of fluids. Take the augmentin 2 times per day for 10 days. Take tylenol or motrin for any fever or pain. Please return if you are worse such as more pain, nausea or vomiting or if you cannot keep anything down. Sepsis Event Note - Evaluation Sepsis Screening Result: No Definite Risk - Focused Exam Vital Signs: Vital Signs Temp Pulse Resp BP Pulse Ox 03/08/19 05:39 97.6 F 145 H 24 H 149/105 H 91 L Date Exam was Performed: 03/08/19 Time Exam was Performed: 07:02 <Octavio Gómez - Last Filed: 03/08/19 09:13> Course - Re-Assessments/Exams Free Text/Narrative Re-Assessment/Exam: 03/08/19 09:[address] shows inflammatory change around the junction of the sigmoid and descending colon with associated bowel wall thickening. Diverticula is seen in this area. Findings are felt compatible with diverticulitis. Other findings which are believed to be incidental as described above. She is doing except she will have some pain when she has to have a bowel movement. She did keep down the contrast. I feel she is a candidate for outpatient treatment. She has no allergies so I will put her on augmentin. Departure - Departure Time of Disposition: 09:10 Condition: Good - Discharge Information *PRESCRIPTION DRUG MONITORING PROGRAM REVIEWED*: Not Applicable *COPY OF PRESCRIPTION DRUG MONITORING REPORT IN PATIENT NILS: Not Applicable Sepsis Event Note - Focused Exam Date Exam was Performed: 03/08/19 Time Exam was Performed: 09:04
[2019-03-08] MEDS ORDERED: Sodium Chloride 0.9% 1,000 ML IV SCH (06:45)
[2019-03-08] MEDS ORDERED: Sodium Chloride 0.9% 10 ML Syringe FLUSH ONE (07:34)
[2019-03-08] MEDS ORDERED: Diatrizoate Meglumine/Diatrizoate Sodium 37% 120 ML Bottle PO ONE (07:34)
[2019-03-08] MEDS ORDERED: Iopamidol 612 MG/ML 100 ML Bottle IVPUSH ONE (07:34)
[2019-03-08] MEDS ORDERED: Sodium Chloride 0.9% 100 ML IV SCH (07:45)
--- NOTE | 2019-03-08 09:12 | CT ---
CT abdomen and pelvis Technique: Multiple axial sections were obtained from above the dome of the diaphragm inferiorly through the pubic symphysis. Intravenous and oral contrast was utilized. Delayed images were obtained through the bladder. Comparison: Previous CT abdomen and pelvis exam of 07/24/18. Findings: Visualized lung bases showed nothing acute. Liver contains no focal parenchymal abnormality. Spleen appears within normal limits. Adrenal glands show no nodule. Pancreas is within normal limits. Gallbladder contains no calcified gallstones. Kidneys show symmetric contrast enhancement without hydronephrosis or mass. Aorta shows atherosclerotic calcification which continues into the iliac vessels. No aneurysm is identified. No retroperitoneal adenopathy or mesenteric abnormalities are seen. Inflammatory change is noted at the junction of the descending and sigmoid colon with bowel wall thickening. Diverticula appears to occur in this area and findings are felt to represent diverticulitis. No additional pelvic abnormality is seen. No free fluid is seen. No bowel dilatation is identified. Appendix is seen which is normal in size. Delayed images show contrast within the distal ureters and within the bladder. Bone window settings were reviewed which show mild degenerative change within the spine. No acute osseous finding is appreciated. Impression: 1. Inflammatory change around the junction of the sigmoid and descending colon with associated bowel wall thickening. Diverticula is seen in this area. Findings are felt compatible with diverticulitis. 2. Other findings which are believed to be incidental as described above. Diagnostic code #3 This report was dictated in [place] Standard Time
== END 2019-03-08 09:46 | disposition home or self-care (01) ==
LOC: JD.ED 05:23
DX: K57.32 Diverticulitis of large intestine without perforation or abscess without bleeding (principal); I50.9 Heart failure, unspecified; J44.9 Chronic obstructive pulmonary disease, unspecified; E11.9 Type 2 diabetes mellitus without complications; E78.00 Pure hypercholesterolemia, unspecified; Z79.84 Long term (current) use of oral hypoglycemic drugs; Z79.899 Other long term (current) drug therapy; Z87.891 Personal history of nicotine dependence
CPT/HCPCS: 36415; 74177; 80053; 81001; 85025; 96360; 96361; 99284; J7030; J7050; Q9963; Q9967